=== PATIENT | female | born 1975 | race Caucasian/White ===

== ENCOUNTER 2017-08-14 10:55 | Emergency (ER) | payer BC ==
[2017-08-14 12:01] LABS: Bilirubin Negative (Negative); Blood, Urine Negative (Negative); Glucose, Urine (Dipstick) Negative (Negative); Ketone, Urine Negative (Negative); Nitrite Negative (Negative); Protein, Urine (Dipstick) Negative (Neg-Trace); Urobilinogen 0.2 mg/dL (0.2-1.0)
[2017-08-14 12:03] LABS: #Eosinphils 0.2 thou/uL (0.0-0.7); #Lymphocytes 1.1 thou/uL (1.20-3.40); #Monocytes 0.4 thou/uL (0.11-0.59); #Neutrophils 4.7 thou/uL (1.40-6.50); %Basophils 0.4 % (0.0-1.0); %Eosinophils 3.6 % (0.0-10.0); %Lymphocytes 17.1 % (21.0-51.0); %Monocytes 6.3 % (0.0-10.0); Hematocrit 39.2 % (36.0-47.0); Mean Platelet Volume 9.1 fL (7.4-10.4); Red Blood Cell (RBC) Count 4.39 mill/uL (4.20-5.40); White Blood Cell (WBC) Count 6.4 thou/uL (4.8-10.8)
[2017-08-14] MEDS ORDERED: Acetaminophen 325 MG TAB ONE (12:30)
[2017-08-14 12:36] LABS: ALT (SGPT) 13 U/L (8-55); AST (SGOT) 14 U/L (5-34); Alkaline Phosphatase 52 U/L (40-150); Anion Gap 10 mmol/L (10-20); BUN (Urea Nitrogen) 13 mg/dL (7.0-18.7); Bilirubin, Total 1.2 mg/dL (0.2-1.2); Calc. Creatinine Clearance 0 mL/min (70-130); Calcium 9.6 mg/dL (7.8-10.44); Carbon Dioxide 28 mmol/L (22-29); Chloride 101 mmol/L (98-107); Estimated GFR-MDRD 66; Globulin 3.7 g/dL (2.4-3.5)
--- NOTE | 2017-08-14 14:32 | CT ---
CT ABDOMEN NONCONTRAST CT PELVIS NONCONTRAST: (urolithiasis protocol) DATE: 08-14-17 TIME: 12:46 p.m. HISTORY: 41-year-old female with left flank pain. The pain has now moved to the right side of the abdomen. COMPARISON: Contrast enhanced CT of 06-08-15. TECHNIQUE: IV injection of iodinated contrast media: none Oral contrast media: none FINDINGS: Other than for urolithiasis, the lack of IV and oral contrast limits the evaluation. 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 There is a suture line close to the right adrenal gl and, at least one surgical clip in the right renal bed medially, and a cluster of surgical clips in the right lower retroperitoneum. Within the limitations of a noncontrast scan, no gross pathology is identified involving the abdominal aorta, left kidney, adrenals, liver, or spleen. The size and sha pe of the pancreas is unchanged compared to the previous CT. There is no peripancreatic fat strandin g involving the tail. It is difficult to evaluate for fat stranding around the pancreatic head becau se of relative lack of visceral fat in this location, and lack of IV contrast. There are no left tonia al, ureteral or bladder calculi. The bladder is distended. The appendix is normal. The urinary bladd er is normal. No signs of acute colonic diverticulitis. No pneumoperitoneum or small bowel dilatatio n. There is a new finding of a large, approximately 7.5 x 6.5 x 5.5 cm low density, unilocular cystic m ass with density of 22 HU, at midline located posterior to the urinary bladder and anterior to the r ectum. Posterior to this, there is a small amount of free fluid to the right of midline. Previously, in 2014, a normal appearing uterus was present. Currently no uterus is visualized. This large cysti c mass has a rim of soft tissue density material, which is thin posteriorly and thicker anteriorly w here it measures approximately 1 cm. IMPRESSION: 1. Large 7.5 cm midline posterior inferior pelvic cystic mass. This could be a hemorrhagic ovarian c yst. The other possibility of a cystic ovarian neoplasm such as cystadenoma (or less likely cystade nocarcinoma) is raised. Recommend gynecology consultation. 2. Status post right nephrectomy. 3. No left sided urolithiasis or obstructive uropathy. 4. Status post hysterectomy. WENDY Mancilla POS: JOYCELYN
== END 2017-08-14 14:16 | disposition home or self-care (01) ==
LOC: ERS 10:55
DX: R19.00 Intra-abdominal and pelvic swelling, mass and lump, unspecified site (principal); Z79.899 Other long term (current) drug therapy
CPT/HCPCS: 74176; 80053; 81003; 81025; 85025

== ENCOUNTER 2023-09-18 08:49 | Outpatient (CLI) | payer BC | END 2023-09-18 08:50 | disposition home or self-care (01) | LOC: BICMAMMO 08:49 | PROVIDERS: ATTEND Family Medicine | DX: Z12.31 Encounter for screening mammogram for malignant neoplasm of breast (principal); N64.89 Other specified disorders of breast | CPT/HCPCS: 77063; 77067 ==

== ENCOUNTER 2023-10-09 08:34 | Outpatient (CLI) | payer BC | END 2023-10-09 08:35 | disposition home or self-care (01) | LOC: BICMAMMO 08:34 | PROVIDERS: ATTEND Family Medicine | DX: N64.89 Other specified disorders of breast (principal) | CPT/HCPCS: G0279 ==